=== PATIENT | male | born 1975 | race Caucasian/White ===

== ENCOUNTER 2025-02-14 13:46 | Emergency (ER) | payer OTHER, SELFPAY ==
[2025-02-14 13:58] VITALS: BP 135/92; PULSE 81; RESP 18; TEMP 36.4; O2SAT 99
--- NOTE | 2025-02-14 13:58 | ED.WOUNDLAC ---
HPI - Wound/Laceration General Chief Complaint: Wound/Laceration Stated Complaint: finger injury Time Seen by Provider: 02/14/25 13:58 Source: patient, RN notes reviewed and old records reviewed Mode of arrival: ambulatory Limitations: no limitations History of Present Illness HPI narrative: 49-year-old male presents to the [facility] with a avulsion of skin due to a slicer. Patient was using a mandoline slicing potatoes when he took off the tip of his finger. States that he was unable to get bleeding stop so he came in to be seen. Unknown last tetanus Related Data Home Medications ?Medication ?Instructions ?Recorded ?Confirmed ?Last Taken ?Type otc allergy 02/14/25 Unknown History Allergies Allergy/AdvReac Type Severity Reaction Status Date / Time No Known Allergies Allergy Verified 02/14/25 14:11 Review of Systems Review of Systems: All systems reviewed & are unremarkable except as noted in HPI and below Constitutional: Constitutional: Reports no additional constitutional complaints ENT: Reports system reviewed and no additional complaints, except as documented Cardiovascular: Cardiovascular: Reports no additional cardiovascular complaints, Denies chest pain and Denies dyspnea Respiratory: Respiratory: Reports no additional respiratory complaints, Denies chest congestion, Denies cough and Denies dyspnea Musculoskeletal: Musculoskeletal: Reports no additional musculoskeletal complaints Integumentary/Breasts: Skin/Breast: Reports as per HPI PMFSH Comments At the time of my signature, I reviewed and agree with the nursing past medical, surgical, social, and family history. There is no relevant family history pertinent to the patient complaint. Exam Const: General: cooperative, healthy appearing, comfortable, no acute distress, well developed, alert and well nourished Nutritional Appearance: well nourished Orientation/consciousness: patient oriented x3 Limitations: no limitations HENMT: Head: normal to inspection Eyes: General: appearance normal, both eyes and all related structures Alignment and Position: alignment normal Neck: Neck: normal visual inspection, full ROM, no lymphadenopathy and no meningeal signs Chest: Chest palpation & inspection: normal inspection of the chest Resp: Effort & Inspection: normal respiratory effort and able to speak in complete sentences Cardio: Rate: regular rate Skin: General skin exam: normal color and no rashes or lesions noted Wounds: wounds noted avulsion right distal thumb size (1.5x 1) and bed beefy red; without any surrounding erythema Neuro: General: patient oriented x3, gait normal, moves all extremities and no meningeal signs Cognition (Neuro): normal cognition Speech: normal speech Gait exam (Neuro): Normal gait present Extrem: General: normal to inspection, full ROM, capillary refill normal and normal gait Psych: Appearance: grossly normal and well kempt Mental Status: mental status grossly normal Speech and movement: Normal speech and movement present and Clear speech present Affect: normal affect Attitude: cooperative Course Course Emergency Course: Attempted to hold pressure to area directly for 15 minutes. Unable to control bleeding. Use epinephrine lidocaine, soaked gauze, help pressure for 15 minutes. Decreased bleeding noted. Use Surgicel, bleeding now controlled. Apply dressing. Updated tetanus Level of Care: Express Care Visit Vital Signs Vital signs: Vital Signs Temperature 97.5 F L 02/14/25 13:58 Pulse Rate 81 02/14/25 13:58 Respiratory Rate 18 02/14/25 13:58 Blood Pressure 135/92 H 02/14/25 13:58 Pulse Oximetry 99 02/14/25 13:58 Oxygen Delivery Room Air 02/14/25 13:58 Temperature 97.5 F L 02/14/25 13:58 Pulse Rate 81 02/14/25 13:58 Respiratory Rate 18 02/14/25 13:58 Blood Pressure 135/92 H 02/14/25 13:58 Pulse Oximetry 99 02/14/25 13:58 Oxygen Delivery Room Air 02/14/25 13:58 Reviewed MDM - Wound/Laceration MDM Narrative Medical decision making narrative: Patient sitting in exam room. Nontoxic, vitals stable. Avulsion of skin to the thumb. Updated tetanus Refers to plastic/hand Patient is appropriate for outpatient treatment with close follow-up Discharge instructions reviewed with patient, as well as provided in writing per nursing staff. The instructions also include specific and strict return/GO TO THE ER as well as f/u information. All questions have been answered, and the patient deny any further questions with discharge and discharge plan. Some parts of this dictation were generated by voice recognition software and may contain typographical and/or grammatical inaccuracies. Differential Diagnosis Differential diagnosis: Likely laceration, abscess and abrasion Critical Care Time Critical Care Time Critical Care Time: No Discharge Plan Discharge Clinical Impression: Avulsion of skin of finger, Vaccine for [id number], combined Patient Disposition: Home Condition: Stable Instructions: Skin Avulsion (ED) Additional Instructions: Keep the dressing in place for 24 hours. You can remove the outside bandage. Leave the show any white bandage in place especially foot stuck to your finger. Keep area covered Follow-up with primary care provider If you are having a hard time finding a physician please call our [facility] group liaison at [phone]. Follow-up with Dr. Julien take tylenol as needed for pain Ice can help with pain and swelling. Patient Language: Lithuanian Prescriptions: No Action otc allergy Follow-up/Referrals: Mary Julien MD [Physician] - 2 Days (right thumb skin avulsion ) PHYSICIAN,[employer]LECT[employer]MENT [employer]SEM[employer]ER [Primary Care Provider] - Stand Alone Forms: Work/School Release IP Time of Disposition: 14:58
[2025-02-14] MEDS: TETANUS,DIPHTHERIA,AC PERTUSSIS ADULT (0.5 ML) BOOSTRIX IM (14:16)
== END 2025-02-14 15:01 | disposition home or self-care (01) ==
PROVIDERS: Emergency Provider Nurse Practitioner
DX: S61.001A Unspecified open wound of right thumb without damage to nail, initial encounter (principal); W27.4XXA Contact with kitchen utensil, initial encounter; Y93.G1 Activity, food preparation and clean up; Z23 Encounter for immunization; I10 Essential (primary) hypertension
CPT/HCPCS: 90471; 90715; 99212; G0463